=== PATIENT | female | born 1985 | race African-American/Black ===

== ENCOUNTER 2017-01-05 06:38 | Inpatient (IN) | payer MEDICAID ==
[~2017-01-05] VITALS: Ht 162.6 cm; Wt 103.9 kg
[2017-01-05] MEDS ORDERED: DEXT 5%/LR + PITOCIN 20UNITS/L 1,000 ML IV SCH ×2 (07:39→12:00)
[2017-01-05] MEDS ORDERED: NALOXONE HCL 0.4 MG/ML 1ML VIAL IM PRN (07:45)
[2017-01-05] MEDS ORDERED: METHYLERGONOVINE MALEATE 0.2 MG/ML IM PRN (07:45)
[2017-01-05] MEDS ORDERED: CARBOPROST TROMETHAMINE 250 MCG/ML AMPUL IM PRN (07:45)
[2017-01-05] MEDS: LACTATED RINGERS 1,000 ML IV SCH ×3 (07:46→08:28)
[2017-01-05 07:51] LABS: BASOPHILS % 0.4 % (0.0-2.0); EOSINOPHILS % 2.1 % (0.0-5.0); HEMATOCRIT. 31.3 % (36.0-48.0); HEMOGLOBIN. 10.6 g/dL (12.0-16.0); MEAN CORPUSCULAR HEMOGLOBIN 28.3 pg (28.0-32.0); MEAN CORPUSCULAR VOLUME 83.7 fL (81.0-99.0); MEAN PLATELET VOLUME 7.9 fl (7.4-10.4); MONOCYTES % 9.5 % (2.0-8.0); PLATELET 189 x1000/uL (130-400); RED BLOOD CELL COUNT 3.74 mill/uL (4.2-5.4); RED CELL DISTRIBUTION WIDTH 14.1 % (11.6-14.6)
[2017-01-05 08:09] LABS: PARTIAL THROMBOPLASTIN TIME 28.9 sec (24.0-34.0)
[2017-01-05] MEDS ORDERED: ONDANSETRON HCL 4MG/2ML VIAL ONE (08:10)
[2017-01-05] MEDS ORDERED: EPHEDRINE SULFATE 50MG/ML VIAL ONE (08:10)
[2017-01-05] MEDS ORDERED: CEFAZOLIN SODIUM 1000MG/VIAL ONE (08:10)
[2017-01-05] MEDS ORDERED: MIDAZOLAM HCL 2 MG/2 ML VIAL ONE (08:10)
[2017-01-05] MEDS ORDERED: OXYTOCIN 10 UNITS/ML 1ML ONE (08:10)
[2017-01-05] MEDS ORDERED: SODIUM CHLORIDE 0.9% 10ML VIAL ONE (08:10)
[2017-01-05] MEDS ORDERED: DEXAMETHASONE 4MG/ML 1ML VIAL ONE (08:10)
[2017-01-05] MEDS ORDERED: PHENYLEPHRINE HCL 10 MG/ML 1ML (IV VIAL) IV ONE (08:10)
[2017-01-05] MEDS ORDERED: MORPHINE SULFATE/PF 1MG/ML 10ML AMP ONE (08:10)
[2017-01-05] MEDS ORDERED: FENTANYL CITRATE/PF 50MCG/ML 2ML VIAL ONE (08:10)
[2017-01-05 08:12] LABS: GLUCOSE URINE NEGATIVE (NEGATIVE); KETONES URINE NEGATIVE (NEGATIVE); LEUKOCYTE ESTERASE URINE NEGATIVE (NEGATIVE); NITRITE URINE NEGATIVE (NEGATIVE); OCCULT BLOOD URINE NEGATIVE (NEGATIVE); PROTEIN URINE TRACE (NEGATIVE); SPECIFIC GRAVITY URINE 1.026 (1.005-1.030)
[2017-01-05 08:15] LABS: CLARITY URINE CLOUDY (CLEAR); COLOR URINE YELLOW (YELLOW)
[2017-01-05 08:28] LABS: HEPATITIS B SURFACE ANTIGEN NEGATIVE; RUBELLA IGG 234.4 IU/mL (4.99-10)
[2017-01-05 08:34] LABS: *AMPHETAMINES SCREEN URINE NEGATIVE (NEGATIVE); *BARBITURATES SCREEN URINE NEGATIVE (NEGATIVE); *BENZODIAZEPINES SCREEN URINE NEGATIVE (NEGATIVE); *COCAINE SCREEN URINE NEGATIVE (NEGATIVE); CANNABINOID URINE SCREEN NEGATIVE (NEGATIVE); METHADONE URINE SCREEN NEGATIVE (NEGATIVE); OPIATES URINE SCREEN NEGATIVE (NEGATIVE); PHENCYCLIDINE URINE SCREEN NEGATIVE (NEGATIVE)
[2017-01-05] MEDS ORDERED: MORPHINE SULFATE 4 MG/ML CPJ (NOT FOR IM USE) IV ONE (10:05)
[2017-01-05] MEDS ORDERED: HYDROCODONE/ACETAMINOPHEN 5/325MG TABLET PO PRN ×2 (11:45)
[2017-01-05] MEDS ORDERED: BISACODYL 10MG SUPP PR PRN (11:45)
[2017-01-05] MEDS ORDERED: LANOLIN OINT 0.25 GM TUBE TOP PRN (11:45)
[2017-01-05] MEDS: SIMETHICONE 80MG TABLET CHEW PO SCH ×3 (12:40→21:00)
[2017-01-05 13:00] VITALS: BP 100/51
[2017-01-05] MEDS ORDERED: CEFAZOLIN 1000MG PREMIX 50 ML IV SCH (13:00)
[2017-01-05] MEDS ORDERED: NALOXONE HCL 0.4 MG/ML 1ML VIAL IV PRN (13:45)
[2017-01-05] MEDS ORDERED: DIPHENHYDRAMINE 50MG/ML VIAL IV PRN (13:45)
[2017-01-05] MEDS ORDERED: ONDANSETRON HCL 4MG/2ML VIAL IV PRN (13:45)
[2017-01-05] MEDS ORDERED: MORPHINE SULFATE 4 MG/ML CPJ (NOT FOR IM USE) IV SCH (13:45)
[2017-01-05] MEDS ORDERED: KETOROLAC 30MG/ML VIAL IV SCH (13:45)
[2017-01-05 14:00] VITALS: BP 99/52
[2017-01-05 16:22] VITALS: BP 102/50
[2017-01-05 19:15] VITALS: BP 90/47
[2017-01-05 23:49] VITALS: BP 98/50
[2017-01-06 03:51] VITALS: BP 93/48
[2017-01-06 06:22] LABS: HEMATOCRIT 27.4 % (36.0-48.0); HEMOGLOBIN 9.5 g/dL (12.0-16.0)
[2017-01-06 06:32] VITALS: BP 95/52
[2017-01-06] MEDS: SIMETHICONE 80MG TABLET CHEW PO SCH ×5 (09:00→21:17)
[2017-01-06] MEDS: IBUPROFEN 800MG TABLET PO PRN ×2 (09:22→17:59)
[2017-01-06] MEDS: PRENATAL VIT/FE FUMARATE/FA TABLET PO SCH (09:22)
[2017-01-06 10:00] VITALS: BP 101/57
[2017-01-06] MEDS: FERROUS SULFATE 325MG TABLET PO SCH ×3 (12:10→17:59)
[2017-01-06 16:00] VITALS: BP 106/61
[2017-01-06 18:00] VITALS: BP 100/59
[2017-01-06 19:50] VITALS: BP 99/65
[2017-01-07] VITALS: BP 99/58
[2017-01-07 04:27] VITALS: BP 101/60
[2017-01-07] MEDS: IBUPROFEN 800MG TABLET PO PRN ×4 (04:27→21:17)
[2017-01-07 07:56] VITALS: BP 106/67
[2017-01-07] MEDS: SIMETHICONE 80MG TABLET CHEW PO SCH ×2 (08:57→21:16)
[2017-01-07] MEDS: PRENATAL VIT/FE FUMARATE/FA TABLET PO SCH (08:57)
[2017-01-07] MEDS: FERROUS SULFATE 325MG TABLET PO SCH ×2 (08:58→15:45)
[2017-01-07 15:45] VITALS: BP 106/81
[2017-01-07 21:15] VITALS: BP 110/70
[2017-01-08 00:18] VITALS: BP 97/79
[2017-01-08 05:20] VITALS: BP 117/68
[2017-01-08] MEDS: IBUPROFEN 800MG TABLET PO PRN (07:44)
[2017-01-08] MEDS: FERROUS SULFATE 325MG TABLET PO SCH (07:44)
[2017-01-08] MEDS: PRENATAL VIT/FE FUMARATE/FA TABLET PO SCH (07:45)
[2017-01-08] MEDS: SIMETHICONE 80MG TABLET CHEW PO SCH (07:46)
[2017-01-08 07:53] VITALS: BP 100/63
[2017-01-08] MEDS ORDERED: IBUPROFEN 800MG TABLET PO PRN (08:00)
== END 2017-01-08 11:50 | disposition home or self-care (01) | DRG 540 ==
LOC: L&D 06:38 → OBSVTOIN 06:38 → 7EST PP/OB 11:50
PROVIDERS: ADMIT Obstetrics & Gynecology; ATTEND Obstetrics & Gynecology
PROC: 10D00Z1 Extraction of Products of Conception, Low, Open Approach (ICD-10-PCS; principal; 2017-01-05 09:39)
DX: O34.211 Maternal care for low transverse scar from previous cesarean delivery (principal); Z37.0 Single live birth; Z53.29 Procedure and treatment not carried out because of patient's decision for other reasons; Z3A.39 39 weeks gestation of pregnancy; Z90.49 Acquired absence of other specified parts of digestive tract
CPT/HCPCS: 36415; 80305; 81001; 85014; 85018; 85025; 85610; 85730; 86592; 86703; 86762; 86850; 86900; 86920; 87340; 88307; A4216; J0171; J0690; J1100; J1885; J2250; J2270; J2274; J2370; J2405; J2590; J3010; J7120; A4315